=== PATIENT | female | born 1985 | race African-American/Black ===

== ENCOUNTER 2021-06-28 22:51 | Emergency (ER) | payer OTHER ==
[~2021-06-28] VITALS: Ht 167.6 cm; Wt 99.8 kg
[2021-06-28] MEDS ORDERED: MACROBID 100 M100 MG PO (23:11)
[2021-06-28] MEDS ORDERED: NITROFURANTOIN MACROCRYSTALS 100 MG CAP PO ONE (23:15)
[2021-06-28 23:23] LABS: CLARITY,URINE CLEAR (CLEAR); COLOR,URINE YELLOW (YELLOW); KETONES,URINE NEGATIVE (NEGATIVE); LEUKOCYTE ESTERASE ,URINE NEGATIVE (NEGATIVE); NITRITE,URINE NEGATIVE (NEGATIVE); PROTEIN,URINE DIPSTICK NEGATIVE (NEGATIVE); URINE UROBILINOGEN 0.2 mg/dL (0.2 - 1)
[2021-06-28] MEDS ORDERED: NITROFURANTOIN MACROCRYSTALS 100 MG CAP ONE (23:25)
[2021-06-28 23:27] LABS: BACTERIA,URINE FEW /HPF; EPITHELIAL CELLS,URINE RARE /LPF; RBC,URINE 0-5 /HPF (0-5); WBC,URINE (MAN) 0-5 /HPF (0-5)
== END 2021-06-28 23:55 | disposition home or self-care (01) ==
LOC: ER 23:26
DX: R30.0 Dysuria (principal); N39.0 Urinary tract infection, site not specified; I10 Essential (primary) hypertension
CPT/HCPCS: 81001; 81025; 87086